=== PATIENT | male | born 2000 | race Asian ===

== ENCOUNTER 2019-11-10 20:14 | Emergency (ER) | payer BC, OTHER ==
[~2019-11-10] VITALS: Ht 175.3 cm; Wt 104.3 kg
[2019-11-10 20:22] VITALS: BP 151/98
--- NOTE | 2019-11-10 22:04 | NUR ---
Patient discharged to home in stable condition. Written and verbal after care instructions given. Patient verbalizes understanding of instruction. Pt ambulatory with a steady gait
== END 2019-11-10 22:05 | disposition home or self-care (01) ==
LOC: ER 20:18
DX: J06.9 Acute upper respiratory infection, unspecified (principal); R06.02 Shortness of breath; R50.9 Fever, unspecified; Z20.828 Contact with and (suspected) exposure to other viral communicable diseases
CPT/HCPCS: 71045-TC